=== PATIENT | female | born 1985 | race Caucasian/White ===

== ENCOUNTER 2019-10-06 20:49 | Inpatient (IN) | payer MEDICAID ==
[2019-10-06] MEDS ORDERED: TYLENOL 325 MG PO ONE (21:14)
[2019-10-06] MEDS ORDERED: Zofran 4 MG/2 ML VIAL IV ONE (21:14)
[2019-10-06] MEDS ORDERED: Sodium Chloride 0.9% 1000 ML 1,000 ML IV STA (21:14)
[2019-10-06] MEDS ORDERED: CLINDAMYCIN-D5W 600 MG/50 ML*** 600 MG/50 ML BAG IV STA (21:20)
[2019-10-06] MEDS ORDERED: CLINDAMYCIN-D5W 600 MG/50 ML*** 600 MG/50 ML BAG IV ONE (21:44)
[2019-10-06] MEDS ORDERED: Zofran 4 MG/2 ML VIAL ONE (21:44)
[2019-10-06] MEDS ORDERED: TYLENOL 325 MG ONE (21:44)
[2019-10-06] MEDS ORDERED: Sodium Chloride 0.9% 1000 ML 1,000 ML ONE (21:44)
--- NOTE | 2019-10-06 21:52 | ERPHSYRPT ---
- History of Present Illness Time Seen by Provider: 10/06/19 20:54 Source: patient Exam Limitations: no limitations Patient Subjective Stated Complaint: pt c/o infection to rt armpit, x3 weeks. Pt was hospitalized x2 in [place] and [place] for IV atb. Pt c/o lots of pain. Triage Nursing Assessment: pt has open areas to armpits (2 to rt and 1 to left) . Pt states, "they are abscesses that are open, the said there was something wrong with her sweat glands". Both armpits are red, open areas noted , pt c/o alot of pain. Physician History: Patient is here for bilateral axilla infection. She has a long h/o this. She states she has had 2 hospitalizations the past 3 weeks. She does have surgery scheduled for drainage in 2 weeks. Location: bilateral axilla Quality: draining abscess Radiation: none Severity: moderate Duration: chronic Timing: gradual Modifying factors/associated signs and symptoms: bactrim, clinda cream Allergies/Adverse Reactions: codeine Allergy (Verified 10/06/19 21:15) Tightness of Throat cephalexin [From Keflex] Adverse Reaction (Verified 10/06/19 21:15) Hives Home Medications: Clindamycin Phosphate [Cleocin T] 30 ml TP BID 10/06/19 [History] Sulfamethoxazole/Trimethoprim [Sulfamethoxazole-Tmp Ds Tablet] 1 each PO BID 06/17 [History] Hx Tetanus, Diphtheria Vaccination/Date Given: Yes Hx Influenza Vaccination/Date Given: Yes Hx Pneumococcal Vaccination/Date Given: No Immunizations Up to Date: Yes - Review of Systems Constitutional: Fever, Chills Eyes: No Symptoms Ears, Nose, & Throat: No Symptoms Respiratory: No Cough, No Dyspnea Cardiac: No Chest Pain, No Edema, No Syncope Abdominal/Gastrointestinal: No Abdominal Pain, No Nausea, No Vomiting, No Diarrhea Genitourinary Symptoms: No Dysuria Musculoskeletal: Other (bilateral axilla infection ), No Back Pain, No Neck Pain Skin: No Rash Neurological: No Dizziness, No Focal Weakness, No Sensory Changes Psychological: No Symptoms Endocrine: No Symptoms All Other Systems: Reviewed and Negative - Past Medical History Pertinent Past Medical History: Yes Neurological History: No Pertinent History ENT History: No Pertinent History Cardiac History: Hypertension, Myocardial Infarction (NH) Respiratory History: Asthma Endocrine Medical History: No Pertinent History Musculoskeletal History: No Pertinent History GI Medical History: No Pertinent History History: No Pertinent History Psycho-Social History: Anxiety, Bipolar, Depression, Panic Disorder, Other Female Reproductive Disorders: No Pertinent History, Menstrual Problems Other Medical History: PTSD, schizophrenia - Past Surgical History Past Surgical History: Yes Neuro Surgical History: No Pertinent History Cardiac: No Pertinent History Respiratory: No Pertinent History Female Surgical History: Other Other Surgical History: metal removed from rt knee and back. surgery to rt hand from cat bite fever. ablation - Social History Smoking Status: Never smoker Exposure to second hand smoke: Yes Drug Use: none Patient Lives Alone: No - Female History Hx Last Menstrual Period: 2008 Hx Now: No - Nursing Vital Signs Nursing Vital Signs: Initial Vital Signs Temperature 99.0 F 10/06/19 20:57 Pulse Rate 113 H 10/06/19 20:57 Respiratory Rate 22 10/06/19 20:57 Blood Pressure 182/140 10/06/19 20:57 O2 Sat by Pulse Oximetry 97 10/06/19 20:57 Pain Scale Pain Intensity [Left Arm] 9 Pain Intensity [Right Arm] 9 Pain Intensity 9 - Physical Exam General Appearance: alert Eyes, Ears, Nose, Throat Exam: moist mucous membranes Neck Exam: non-tender, supple Cardiovascular/Respiratory Exam: chest non-tender, normal breath sounds, regular rate/rhythm, no respiratory distress Abdominal Exam: non-tender, No guarding Back Exam: normal inspection, No vertebral tenderness Shoulder Exam: normal inspection (bilateral draining axilla abscesses ) Neuro/Tendon Exam: normal sensation, normal motor functions Mental Status Exam: alert, oriented x 3, cooperative Skin Exam: normal color, warm, dry SpO2: 97 Ordered Tests: Active Orders 24 hr Category Date Time Status IV Insertion STAT Care 10/06/19 21:14 Active BLOOD CULTURE Stat Lab 10/06/19 21:58 Received CBC W DIFF Stat Lab 10/06/19 21:58 Completed CMP Stat Lab 10/06/19 21:58 Completed HCG QUALITATIVE,SERUM Stat Lab 10/06/19 21:58 Completed LIPASE Stat Lab 10/06/19 21:58 Completed Lactic Acid Stat Lab 10/06/19 22:15 Results Medication Summary Generic Name Dose Route Start Last Admin Trade Name Freq PRN Reason Stop Dose Admin Vancomycin HCl 1 gm in 250 mls @ 167 mls/hr 10/06/19 21:30 Vancomycin 1gm/ Ns 250ml IV 10/06/19 23:29 Q1H SOULEYMANE Discontinued Medications Generic Name Dose Route Start Last Admin Trade Name Brandy PRN Reason Stop Dose Admin Acetaminophen 975 mg 10/06/19 21:14 10/06/19 22:06 Tylenol 325 Mg PO 10/06/19 21:15 975 mg STAT ONE Administration Acetaminophen Confirm 10/06/19 21:44 Tylenol 325 Mg Administered 10/06/19 21:45 Dose 975 mg .ROUTE .STK-MED ONE Sodium Chloride 1,000 mls @ 999 mls/hr 10/06/19 21:14 10/06/19 22:00 Sodium Chloride 0.9% 1000 Ml IV 10/06/19 22:14 999 mls/hr .Q1H1M STA Administration Clindamycin HCl/Dextrose 600 mg in 50 mls @ 100 mls/hr 10/06/19 21:20 22:04 Clindamycin-D5w 600 Mg/50 Ml IV 10/06/19 21:49 100 ml/hr STAT STA 100 mls/hr Administration Sodium Chloride Confirm 10/06/19 21:44 Sodium Chloride 0.9% 1000 Ml Administered 10/06/19 21:45 Dose 1,000 mls @ ud .ROUTE .STK-MED ONE Clindamycin HCl/Dextrose Confirm 10/06/19 21:44 Clindamycin-D5w 600 Mg/50 Ml Administered 10/06/19 21:45 Dose 600 mg in 50 mls @ ud IV .STK-MED ONE Ondansetron HCl 4 mg 10/06/19 21:14 10/06/19 22:02 Zofran 4 Mg/2 Ml Vial IV 10/06/19 21:15 4 mg STAT ONE Administration Ondansetron HCl Confirm 10/06/19 21:44 Zofran 4 Mg/2 Ml Vial Administered 10/06/19 21:45 Dose 4 mg .ROUTE .STK-MED ONE Lab/Rad Data: Laboratory Result Diagrams 10/06/19 21:58 10/06/19 21:58 Laboratory Results 10/06/19 10/06/19 10/06/19 Range/Units 22:15 21:58 21:58 WBC (4.0-10.5) K/mm3 RBC (4.1-5.4) M/mm3 Hgb (12.0-16.0) gm/dl Hct (35-47) % MCV (78-100) fl MCH (26-32) pg MCHC (32-36) g/dl RDW (11.5-14.0) % Plt Count (150-450) K/mm3 MPV (7.5-11.0) fl Gran % (36.0-66.0) % Eos # (Auto) (0-0.5) Absolute Lymphs (auto) (1.0-4.6) Absolute Monos (auto) (0.0-1.3) Lymphocytes % (24.0-44.0) % Monocytes % (0.0-12.0) % Eosinophils % (0.00-5.0) % Basophils % (0.0-0.4) % Absolute Granulocytes (1.4-6.9) Basophils # (0-0.4) Sodium 141 (137-145) mmol/L Potassium 4.1 (3.5-5.1) mmol/L Chloride 103 (98-107) mmol/L Carbon Dioxide 29 (22-30) mmol/L Anion Gap 12.7 (5-15) MEQ/L BUN 16 (7-17) mg/dL Creatinine 0.82 (0.52-1.04) mg/dL Estimated GFR > 60.0 ML/MIN Glucose 118 H (74-106) mg/dL Lactic Acid 2.4 H (0.4-2.0) Calcium 9.3 (8.4-10.2) mg/dL Total Bilirubin 0.50 (0.2-1.3) mg/dL AST 26 (14-36) U/L ALT 27 (0-35) U/L Alkaline Phosphatase 61 (38-126) U/L Serum Total Protein 8.7 H (6.3-8.2) g/dL Albumin 4.6 (3.5-5.0) g/dL Lipase 306 H (23-300) U/L Serum , Qual NEGATIVE (Negative) 10/06/19 Range/Units 21:58 WBC 9.7 (4.0-10.5) K/mm3 RBC 3.60 L (4.1-5.4) M/mm3 Hgb 11.9 L (12.0-16.0) gm/dl Hct 36.9 (35-47) % MCV 102.5 H (78-100) fl MCH 33.1 H (26-32) pg MCHC 32.2 (32-36) g/dl RDW 14.1 H (11.5-14.0) % Plt Count 249 (150-450) K/mm3 MPV 10.9 (7.5-11.0) fl Gran % 60.3 (36.0-66.0) % Eos # (Auto) 0.34 (0-0.5) Absolute Lymphs (auto) 2.59 (1.0-4.6) Absolute Monos (auto) 0.84 (0.0-1.3) Lymphocytes % 26.8 (24.0-44.0) % Monocytes % 8.7 (0.0-12.0) % Eosinophils % 3.5 (0.00-5.0) % Basophils % 0.7 (0.0-0.4) % Absolute Granulocytes 5.83 (1.4-6.9) Basophils # 0.07 (0-0.4) Sodium (137-145) mmol/L Potassium (3.5-5.1) mmol/L Chloride (98-107) mmol/L Carbon Dioxide (22-30) mmol/L Anion Gap (5-15) MEQ/L BUN (7-17) mg/dL Creatinine (0.52-1.04) mg/dL Estimated GFR ML/MIN Glucose (74-106) mg/dL Lactic Acid (0.4-2.0) Calcium (8.4-10.2) mg/dL Total Bilirubin (0.2-1.3) mg/dL AST (14-36) U/L ALT (0-35) U/L Alkaline Phosphatase (38-126) U/L Serum Total Protein (6.3-8.2) g/dL Albumin (3.5-5.0) g/dL Lipase (23-300) U/L Serum , Qual (Negative) - Progress Progress Note: 10/06/19 21:51 Ddx includes infection, sepsis, cellulites -sepsis pathway with fluids clindamycin, and vancomycin 10/06/19 22:33 Patient has continued vomiting, not taking PO. Lactic is slightly elevated at 2.4. I do believe patient will need to be admitted to the hospital. I did discuss over the phone with Dr. Maldonado. He will accept the patient. Discussed with : Caty Will see patient in: hospital (observation) Counseled pt/family regarding: lab results, diagnosis, need for follow-up - Departure Departure Disposition: Observation Clinical Impression: Axillary hidradenitis suppurativa Condition: Stable Critical Care Time: No Referrals: CHUY CISNEROS [Primary Care Provider] -
[2019-10-06 22:02] LABS: Absolute Neutrophil Ct (ANC) 5.83 (1.4-6.9); BASOPHIL % 0.7 % (0.0-0.4); Basophil (Absolute #) 0.07 (0-0.4); Eosinophil % 3.5 % (0.00-5.0); Eosinophil (Absolute #) 0.34 (0-0.5); Hematocrit 36.9 % (35-47); Hemoglobin 11.9 gm/dl (12.0-16.0); Lymphocyte (Absolute #) 2.59 (1.0-4.6); Lymphocytes % 26.8 % (24.0-44.0); Mean Cell Volume 102.5 fl (78-100); Mean Corpuscular Hemoglobin 33.1 pg (26-32); Mean Corpuscular Hgb Concent. 32.2 g/dl (32-36); Mean Platelet Volume 10.9 fl (7.5-11.0); Monocyte (Absolute #) 0.84 (0.0-1.3); Monocytes % 8.7 % (0.0-12.0); Neutrophil % 60.3 % (36.0-66.0); Platelet Count 249 K/mm3 (150-450); Red Cell Distribution Width 14.1 % (11.5-14.0); White Blood Count 9.7 K/mm3 (4.0-10.5)
[2019-10-06 22:14] LABS: ALBUMIN 4.6 g/dL (3.5-5.0); ALKALINE PHOSPHATASE 61 U/L (38-126); ANION GAP 12.7 MEQ/L (5-15); BLOOD UREA NITROGEN 16 mg/dL (7-17); CHLORIDE 103 mmol/L (98-107); Calcium 9.3 mg/dL (8.4-10.2); Carbon Dioxide 29 mmol/L (22-30); Creatinine 1 0.82 mg/dL (0.52-1.04); Glucose 118 mg/dL (74-106); LIPASE 306 U/L (23-300); Potassium 4.1 mmol/L (3.5-5.1); SGOT/AST 26 U/L (14-36); SGPT/ALT 27 U/L (0-35); SODIUM 141 mmol/L (137-145); Total Protein 8.7 g/dL (6.3-8.2)
[2019-10-06 22:20] LABS: Lactic Acid 2.4 (0.4-2.0)
[2019-10-06] MEDS: Vancomycin 1GM/ Ns 250ML*** 1 GM/250 ML IVPB IV SCH ×2 (22:37→23:37)
[2019-10-06] MEDS ORDERED: Hydromorphone 1 mg/ml Ampule ONE (23:32)
[2019-10-06] MEDS ORDERED: Zofran 4 MG/2 ML VIAL IV PRN (23:36)
[2019-10-06] MEDS ORDERED: Phenergan 25 MG INJ IM PRN (23:36)
[2019-10-06] MEDS ORDERED: TYLENOL 325 MG PO PRN (23:36)
[2019-10-06] MEDS ORDERED: Sodium Chloride 0.9% 1000 ML 1,000 ML IV SCH (23:36)
[2019-10-06] MEDS: DILAUDID 2 MG INJECTION IV PRN (23:38)
[2019-10-07] MEDS: TORAdol 30 mg Injection IV PRN ×2 (01:24→07:51)
[2019-10-07] MEDS: DILAUDID 2 MG INJECTION IV PRN (04:19)
[2019-10-07 04:52] LABS: Absolute Neutrophil Ct (ANC) 5.01 (1.4-6.9); BASOPHIL % 0.7 % (0.0-0.4); Basophil (Absolute #) 0.06 (0-0.4); Eosinophil % 3.8 % (0.00-5.0); Eosinophil (Absolute #) 0.35 (0-0.5); Hematocrit 34.2 % (35-47); Hemoglobin 10.9 gm/dl (12.0-16.0); Lymphocyte (Absolute #) 2.81 (1.0-4.6); Lymphocytes % 30.6 % (24.0-44.0); Mean Corpuscular Hemoglobin 33.1 pg (26-32); Mean Corpuscular Hgb Concent. 31.9 g/dl (32-36); Mean Platelet Volume 10.4 fl (7.5-11.0); Monocyte (Absolute #) 0.95 (0.0-1.3); Monocytes % 10.3 % (0.0-12.0); Neutrophil % 54.6 % (36.0-66.0); Platelet Count 224 K/mm3 (150-450); Red Blood Count 3.29 M/mm3 (4.1-5.4); Red Cell Distribution Width 14.1 % (11.5-14.0); White Blood Count 9.2 K/mm3 (4.0-10.5)
[2019-10-07 04:55] LABS: Lactic Acid 1.9 (0.4-2.0)
[2019-10-07 05:05] LABS: ALBUMIN 4.1 g/dL (3.5-5.0); ALKALINE PHOSPHATASE 62 U/L (38-126); ANION GAP 13.3 MEQ/L (5-15); BLOOD UREA NITROGEN 15 mg/dL (7-17); CHLORIDE 103 mmol/L (98-107); Calcium 8.5 mg/dL (8.4-10.2); Carbon Dioxide 27 mmol/L (22-30); Creatinine 1 0.78 mg/dL (0.52-1.04); Glucose 133 mg/dL (74-106); Potassium 3.4 mmol/L (3.5-5.1); SGOT/AST 27 U/L (14-36); SGPT/ALT 25 U/L (0-35); SODIUM 140 mmol/L (137-145); Total Protein 7.7 g/dL (6.3-8.2)
[2019-10-07] MEDS ORDERED: PHARMACY DOSING REQUIRED: VANCOMYCIN MC ONE (06:45)
[2019-10-07] MEDS ORDERED: PHARMACY DOSING REQUEST MC ONE (08:08)
[2019-10-07] MEDS ORDERED: MEDICATION INTERVENTION PO SCH ×2 (08:45→09:00)
--- NOTE | 2019-10-07 09:10 | HP ---
CHIEF COMPLAINT: Suppurativa hidradenitis with exacerbation and severe pain. HISTORY OF PRESENT ILLNESS: The patient is a 34 year-old white female who has been fighting suppurativa hidradenitis with oral Bactrim and Clindamycin over the past several days that had initially gotten better but became worse again. She reports there has been drainage in both arm pits, had gotten hot and red and increasingly painful therefore she presented herself to the emergency room for further evaluation and management and subsequently admitted to the hospital for IV antibiotics. PAST MEDICAL HISTORY: Significant for morbid obesity. She has history of hypertension. By her history a previous myocardial infarction. She has anxiety, bipolar depression, panic disorder, schizophrenia, post-traumatic stress disorder, history of narcotic abuse. PHYSICAL EXAMINATION: The patient's vital signs on admission showed temperature 99.0F, pulse 113, blood pressure 182/140 and respiratory rate 20. O2 saturation 97%. Apparently the patient had received some Fentanyl and became hypoxic afterwards. She was placed on oxygen and telemetry after this from her stay in the emergency room. Physical examination reveals otherwise an obese female currently in no obvious distress. HEENT: Normocephalic, atraumatic. Pupils equal round reactive to light. Extraocular movements intact. Oropharynx is pink and moist. NECK: Supple. No lymphadenopathy, thyromegaly or JVD. CHEST: The axillary areas bilaterally revealed drainage of pus. There is appearance of what appeared to be old drainage sites that are pink at this time, minimal redness, obvious drainage apparent from what appear to be bilateral carbuncles. The chest is essentially clear. HEART: Regular rate and rhythm. ABDOMEN: Soft without palpable or masses. EXTREMITIES: Without cyanosis, clubbing or edema. NEUROLOGIC: The patient is alert and oriented x3 and is concerned about receiving pain medication. LAB DATA AND TESTS: The patient's white count was 9,700, hemoglobin 11.9, PLT count 249,000. Metabolic panel: Glucose 118, BUN 16, creatinine 0.82. Electrolytes were normal. Liver enzymes were normal. HCG negative. Lactic acid 2.4. ASSESSMENT: A patient with bilateral suppurativa hidradenitis. She has been admitted for IV Vancomycin, IV Cleocin. These appear to be minimally red and warm at this point in time. I am somewhat concerned with the patient's history of psychological problems and known history of admitted narcotic dependence and her current request for pain medications. She has received outpatient morphine fairly recently for this pain as well, reported taking Tylenol and ibuprofen on a regular basis as well. The patient will be monitored closely presently. We will try to get her off the oxygen as we are not going to continue to give her any morphine medication or Fentanyl. We will give her Percocet 5/325 every four hours PRN as well as ibuprofen 800 mg every 8 hours for pain control. We will ask for surgical consultation as she currently pending in a week from now in [place]. She had recently moved to our area from [place] to be with her best friend. She reports that she will not be able to make it back up to [place] for the planned surgery.
[2019-10-07] MEDS: Zestril 20 MG PO SCH ×2 (09:14→21:30)
[2019-10-07] MEDS: Inderal 20 MG PO SCH ×2 (09:14→21:31)
[2019-10-07] MEDS: Catapres 0.1 MG PO SCH ×3 (09:14→21:31)
[2019-10-07] MEDS: Seroquel 100 MG PO SCH ×3 (09:14→21:31)
[2019-10-07] MEDS: Prozac 20 MG PO SCH (09:15)
[2019-10-07] MEDS: PERCOCET TABLET 5/325MG PO PRN ×2 (09:15→20:39)
[2019-10-07] MEDS: hydroDIURIL 25 MG PO SCH ×2 (09:15→21:30)
[2019-10-07] MEDS ORDERED: LAMOTRIGINE PO SCH (10:00)
[2019-10-07] MEDS ORDERED: PROPRANOLOL HCL 60 MG PO SCH (10:00)
[2019-10-07] MEDS ORDERED: LITHIUM CARBONATE 600 MG PO SCH (10:00)
[2019-10-07] MEDS ORDERED: [UNRECOGNIZED DRUG - OTHER] PO SCH (10:00)
[2019-10-07] MEDS ORDERED: Lithium Carbonate 300 MG PO SCH (10:00)
[2019-10-07] MEDS ORDERED: LISINOPRIL PO SCH (10:00)
[2019-10-07] MEDS ORDERED: HYDROCHLOROTHIAZIDE PO SCH (10:00)
[2019-10-07] MEDS: MOTRIN 400 MG PO SCH ×3 (11:43→21:29)
[2019-10-07] MEDS: VANCOMYCIN 2 GRAM/400 ML BAG 2 GM/400 ML PIGGYBACK IV SCH ×2 (11:44→22:53)
[2019-10-07] MEDS: CLINDAMYCIN-D5W 600 MG/50 ML*** 600 MG/50 ML BAG IV SCH ×3 (11:44→21:32)
[2019-10-07] MEDS ORDERED: Lactated Ringers 1,000 ML IV ONE (15:34)
[2019-10-07] MEDS ORDERED: Sensorcaine 0.25% 10 ML ONE (16:39)
[2019-10-07] MEDS ORDERED: SUBLIMAZE 100 MCG/2 ML ONE ×2 (16:50→18:03)
[2019-10-07] MEDS ORDERED: DIPRIVAN 200 MG/20 ML IV ONE (16:50)
[2019-10-07] MEDS ORDERED: TORAdol 30 mg Injection ONE (17:04)
[2019-10-07] MEDS ORDERED: Decadron 4 MG INJ ONE (17:04)
[2019-10-07] MEDS ORDERED: Zofran 4 MG/2 ML VIAL ONE (17:04)
[2019-10-07] MEDS ORDERED: Ephedrine Sulfate 50 MG/ML ONE (17:06)
[2019-10-07] MEDS ORDERED: DILAUDID 2 MG INJECTION ONE (18:03)
[2019-10-08] MEDS: PERCOCET TABLET 5/325MG PO PRN ×4 (03:17→20:55)
[2019-10-08] MEDS: MOTRIN 400 MG PO SCH ×3 (06:02→21:29)
[2019-10-08] MEDS: CLINDAMYCIN-D5W 600 MG/50 ML*** 600 MG/50 ML BAG IV SCH ×3 (06:08→21:31)
[2019-10-08] MEDS ORDERED: TROUGH DRUG LEVELS IJ ONE (09:30)
[2019-10-08] MEDS: Prozac 20 MG PO SCH (10:00)
[2019-10-08] MEDS: Inderal 20 MG PO SCH ×2 (10:00→21:30)
[2019-10-08] MEDS: hydroDIURIL 25 MG PO SCH ×2 (10:00→21:30)
[2019-10-08] MEDS: Seroquel 100 MG PO SCH ×3 (10:00→21:29)
[2019-10-08] MEDS: Zestril 20 MG PO SCH ×2 (10:01→21:31)
[2019-10-08] MEDS: Catapres 0.1 MG PO SCH ×3 (10:01→21:30)
[2019-10-08] MEDS: VANCOMYCIN 2 GRAM/400 ML BAG 2 GM/400 ML PIGGYBACK IV SCH ×2 (11:16→22:35)
--- NOTE | 2019-10-08 14:13 | PCM.NOTE ---
Date and Time: 10/08/19 5438 Subjective Assessment: Patient reports continued pain in right arm pit area. She had incision and drainage yesterday with general surgeon. She reports pain medication helps for an hour or so. She states long standing hx of infections in arm pit area bilat. - Review of Systems Constitutional: No Symptoms Eyes: No Symptoms Ears, Nose, & Throat: No Symptoms Respiratory: No Symptoms Cardiac: No Symptoms Abdominal/Gastrointestinal: No Symptoms Genitourinary Symptoms: No Symptoms Musculoskeletal: Other (pain under arms bilat) Skin: Skin Lesions Objective Exam General Appearance: no apparent distress, obese Neurologic Exam: alert, cooperative, normal mood/affect Skin Exam: normal color, warm, dry, other (bandage over right axilla; left axilla with scars and few ertyematous papules but no drainage on left side.) Respiratory Exam: normal breath sounds, lungs clear, No crackles/rales, No rhonchi, No wheezing Cardiovascular Exam: regular rate/rhythm, normal heart sounds, No friction rub, No gallop, No tachycardia Extremity Exam: other (no c/c/e) OBJECTIVE DATA Vital Signs: Vital Signs - 24 hr Temp Pulse Resp BP Pulse Ox 10/08/19 12:50 97.8 F 76 20 102/55 97 10/08/19 08:09 98.1 F 59 L 22 133/91 92 L 10/08/19 08:01 92 L 10/08/19 04:09 97.9 F 85 24 136/75 94 L 10/08/19 01:26 97.9 F 65 19 120/60 97 10/08/19 00:00 97.9 F 81 20 131/74 94 L 10/07/19 23:28 94 L 10/07/19 20:00 98.1 F 71 18 116/59 10/07/19 19:30 97.4 F 66 20 105/68 93 L 10/07/19 19:15 97.9 F 68 19 127/65 96 10/07/19 19:00 98.3 F 70 18 122/55 98 10/07/19 15:56 98.1 F 70 17 105/56 96 10/07/19 15:26 98 F 68 17 108/57 97 Oxygen-Last 24 hours O2 Percentage 2 Liters = 28% O2 Percentage 2 Liters = 28% O2 Percentage 2 Liters = 28% Oxygen Flowrate (L/min)-RT 2 Pain Assessment - Last Documented Pain Intensity [Left Arm] 9 Pain Intensity [Right Arm] 9 Pain Intensity 6 Pain Scale Used 0-10 Pain Scale Intake and Output: Intake & Output 10/06/19 10/07/19 10/08/19 10/09/19 06:59 06:59 06:59 06:59 Intake Total 1033 3777 540 Output Total 600 Balance 1033 7087 540 Weight 162.8 kg 162.8 kg Lab Results: Accuchecks Date 10/08/19 Date 10/08/19 Date 10/08/19 Time 12:07 Time 06:20 Time 00:10 Accucheck Value: 166 Accucheck Value: 153 Accucheck Value: 183 Lab Results-Last 24 Hours 10/08/19 Range/Units 09:50 Vancomycin Trough 10.67 (10-20) ug/mL Multi-Disciplinary Progress Notes: Multi-Disciplinary Progress Notes 10/08/19 11:59 Pharmacy Note by Massimo Brand VANCOMYCIN TROUGH = 10.6 CONTINUE SAME DOSE: VANCOMYCIN 2 MG Q12H VIOLETTA Initialized on 10/08/19 11:59 - END OF NOTE Assessment/Plan (1) Axillary hidradenitis suppurativa Current Visit: Yes Status: Acute Assessment & Plan: s/p I and D on right side with wound culture in lab. Continue current antibiotics; continue with pain control. Code(s): L73.2 - HIDRADENITIS SUPPURATIVA (2) DVT prophylaxis Current Visit: Yes Status: Acute Assessment & Plan: SCD and zac hose. Code(s): Z29.9 - ENCOUNTER FOR PROPHYLACTIC MEASURES, UNSPECIFIED (3) Cellulitis Current Visit: Yes Status: Acute Qualifiers: Site of cellulitis: extremity Site of cellulitis of extremity: axilla Laterality: right Qualified Code(s): L03.111 - Cellulitis of right axilla Assessment & Plan: s/p I and D Code(s): L03.90 - CELLULITIS, UNSPECIFIED
[2019-10-08] MEDS ORDERED: Sodium Chloride 0.9% 500 ML 500 ML IV ONE (15:27)
[2019-10-08 16:28] LABS: Hematocrit 31.8 % (35-47); Hemoglobin 10.2 gm/dl (12.0-16.0); Mean Cell Volume 104.3 fl (78-100); Mean Corpuscular Hemoglobin 33.4 pg (26-32); Mean Corpuscular Hgb Concent. 32.1 g/dl (32-36); Mean Platelet Volume 11.2 fl (7.5-11.0); Platelet Count 201 K/mm3 (150-450); Red Blood Count 3.05 M/mm3 (4.1-5.4); Red Cell Distribution Width 13.6 % (11.5-14.0); White Blood Count 8.1 K/mm3 (4.0-10.5)
[2019-10-08 16:35] LABS: ANION GAP 10.9 MEQ/L (5-15); BLOOD UREA NITROGEN 15 mg/dL (7-17); CHLORIDE 105 mmol/L (98-107); Calcium 8.5 mg/dL (8.4-10.2); Carbon Dioxide 25 mmol/L (22-30); Creatinine 1 0.69 mg/dL (0.52-1.04); Glucose 178 mg/dL (74-106); Potassium 3.6 mmol/L (3.5-5.1); SODIUM 138 mmol/L (137-145)
[2019-10-09] MEDS: PERCOCET TABLET 5/325MG PO PRN ×5 (00:58→22:14)
[2019-10-09 06:42] LABS: Absolute Neutrophil Ct (ANC) 3.37 (1.4-6.9); BASOPHIL % 0.6 % (0.0-0.4); Basophil (Absolute #) 0.04 (0-0.4); Eosinophil % 2.5 % (0.00-5.0); Eosinophil (Absolute #) 0.17 (0-0.5); Hematocrit 31.6 % (35-47); Hemoglobin 10.1 gm/dl (12.0-16.0); Lymphocyte (Absolute #) 2.68 (1.0-4.6); Lymphocytes % 39.4 % (24.0-44.0); Mean Cell Volume 105.3 fl (78-100); Mean Corpuscular Hemoglobin 33.7 pg (26-32); Monocyte (Absolute #) 0.55 (0.0-1.3); Monocytes % 8.1 % (0.0-12.0); Neutrophil % 49.4 % (36.0-66.0); Platelet Count 197 K/mm3 (150-450); Red Cell Distribution Width 13.9 % (11.5-14.0); White Blood Count 6.8 K/mm3 (4.0-10.5)
[2019-10-09 07:07] LABS: ANION GAP 11.8 MEQ/L (5-15); BLOOD UREA NITROGEN 12 mg/dL (7-17); CHLORIDE 107 mmol/L (98-107); Calcium 8.3 mg/dL (8.4-10.2); Carbon Dioxide 24 mmol/L (22-30); Creatinine 1 0.68 mg/dL (0.52-1.04); Glucose 123 mg/dL (74-106); Potassium 3.9 mmol/L (3.5-5.1); SODIUM 139 mmol/L (137-145)
[2019-10-09] MEDS: CLINDAMYCIN-D5W 600 MG/50 ML*** 600 MG/50 ML BAG IV SCH ×3 (08:52→22:04)
[2019-10-09] MEDS: Seroquel 100 MG PO SCH ×3 (09:10→22:09)
[2019-10-09] MEDS: Inderal 20 MG PO SCH ×2 (09:10→22:10)
[2019-10-09] MEDS: hydroDIURIL 25 MG PO SCH ×2 (09:10→22:10)
[2019-10-09] MEDS: Prozac 20 MG PO SCH (09:10)
[2019-10-09] MEDS: Zestril 20 MG PO SCH ×2 (09:11→22:11)
[2019-10-09] MEDS: Catapres 0.1 MG PO SCH ×3 (09:11→22:09)
[2019-10-09] MEDS: VANCOMYCIN 2 GRAM/400 ML BAG 2 GM/400 ML PIGGYBACK IV SCH ×2 (11:33→22:48)
--- NOTE | 2019-10-09 14:19 | PCM.NOTE ---
Date and Time: 10/09/19 1414 Subjective Assessment: Patient reports pain is not controlled with percocet and it only helps for about 30 minutes. She is day 2 s/p surgery on her right arm pit. She had trouble urinating yesterday so labs were checked and 500 mL Normal saline bolus given. Patient reports she is urinating well now. - Review of Systems Constitutional: No Symptoms Respiratory: No Symptoms Cardiac: No Symptoms Abdominal/Gastrointestinal: No Symptoms Genitourinary Symptoms: No Symptoms, Other (pain in right arm pit area) Skin: Other (bumps in left arm pit area) Objective Exam General Appearance: no apparent distress, obese Neurologic Exam: alert, cooperative Skin Exam: normal color, warm, other (large bandage with serosangenous drainage on it on right arm pit) Respiratory Exam: normal breath sounds, No crackles/rales, No rhonchi, No wheezing Cardiovascular Exam: regular rate/rhythm, normal heart sounds, No murmur, No friction rub, No gallop Gastrointestinal/Abdomen Exam: soft, normal bowel sounds, No tenderness OBJECTIVE DATA Vital Signs: Vital Signs - 24 hr Temp Pulse Resp BP Pulse Ox 10/09/19 12:30 98.8 F 90 20 158/70 96 10/09/19 07:28 98.5 F 78 20 154/99 97 10/09/19 04:00 98.9 F 75 21 122/58 97 10/09/19 00:00 98.1 F 67 19 141/77 94 L 10/08/19 20:00 97.9 F 72 20 127/95 98 10/08/19 19:58 95 10/08/19 17:21 98 F 72 20 119/60 95 Pain Assessment - Last Documented Pain Intensity [Left Arm] 9 Pain Intensity [Right Arm] 9 Pain Intensity 9 Pain Scale Used 0-10 Pain Scale Intake and Output: Intake & Output 10/07/19 10/08/19 10/09/19 10/10/19 06:59 06:59 06:59 06:59 Intake Total 1033 3777 3890 500 Output Total 600 1500 150 Balance 1033 1177 2390 350 Weight 162.8 kg 162.8 kg Lab Results: Accuchecks Date 10/09/19 Date 10/08/19 Time 00:00 Accucheck Value: 297 Accucheck Value: 199 Lab Results-Last 24 Hours 10/08/19 10/08/19 10/08/19 Range/Units 15:30 16:10 16:10 WBC 8.1 (4.0-10.5) K/mm3 RBC 3.05 L (4.1-5.4) M/mm3 Hgb 10.2 L (12.0-16.0) gm/dl Hct 31.8 L (35-47) % MCV 104.3 H (78-100) fl MCH 33.4 H (26-32) pg MCHC 32.1 (32-36) g/dl RDW 13.6 (11.5-14.0) % Plt Count 201 (150-450) K/mm3 MPV 11.2 H (7.5-11.0) fl Gran % (36.0-66.0) % Eos # (Auto) (0-0.5) Absolute Lymphs (auto) (1.0-4.6) Absolute Monos (auto) (0.0-1.3) Lymphocytes % (24.0-44.0) % Monocytes % (0.0-12.0) % Eosinophils % (0.00-5.0) % Basophils % (0.0-0.4) % Absolute Granulocytes (1.4-6.9) Basophils # (0-0.4) Sodium 138 (137-145) mmol/L Potassium 3.6 (3.5-5.1) mmol/L Chloride 105 (98-107) mmol/L Carbon Dioxide 25 (22-30) mmol/L Anion Gap 10.9 (5-15) MEQ/L BUN 15 (7-17) mg/dL Creatinine 0.69 (0.52-1.04) mg/dL Estimated GFR > 60.0 ML/MIN Glucose 178 H (74-106) mg/dL Hemoglobin A1c 5.64 (4.5-6.0) % Calcium 8.5 (8.4-10.2) mg/dL 10/09/19 10/09/19 Range/Units 06:35 06:35 WBC 6.8 (4.0-10.5) K/mm3 RBC 3.00 L (4.1-5.4) M/mm3 Hgb 10.1 L (12.0-16.0) gm/dl Hct 31.6 L (35-47) % MCV 105.3 H (78-100) fl MCH 33.7 H (26-32) pg MCHC 32.0 (32-36) g/dl RDW 13.9 (11.5-14.0) % Plt Count 197 (150-450) K/mm3 MPV 11.0 (7.5-11.0) fl Gran % 49.4 (36.0-66.0) % Eos # (Auto) 0.17 (0-0.5) Absolute Lymphs (auto) 2.68 (1.0-4.6) Absolute Monos (auto) 0.55 (0.0-1.3) Lymphocytes % 39.4 (24.0-44.0) % Monocytes % 8.1 (0.0-12.0) % Eosinophils % 2.5 (0.00-5.0) % Basophils % 0.6 (0.0-0.4) % Absolute Granulocytes 3.37 (1.4-6.9) Basophils # 0.04 (0-0.4) Sodium 139 (137-145) mmol/L Potassium 3.9 (3.5-5.1) mmol/L Chloride 107 (98-107) mmol/L Carbon Dioxide 24 (22-30) mmol/L Anion Gap 11.8 (5-15) MEQ/L BUN 12 (7-17) mg/dL Creatinine 0.68 (0.52-1.04) mg/dL Estimated GFR > 60.0 ML/MIN Glucose 123 H (74-106) mg/dL Hemoglobin A1c (4.5-6.0) % Calcium 8.3 L (8.4-10.2) mg/dL Assessment/Plan (1) Axillary hidradenitis suppurativa Current Visit: Yes Status: Acute Assessment & Plan: Continue IV antibiotics, s/p incision and drainage of infected area on right side with packing now and dressing changes required. Needing frequent pain medication for pain control. Will need discharge planning to arrange outpatient wound care once general surgeon knows what they want to have done and how frequently. Awaiting wound culture results to know if antibiotic coverage can be narrowed. Code(s): L73.2 - HIDRADENITIS SUPPURATIVA (2) DVT prophylaxis Current Visit: Yes Status: Acute Code(s): Z29.9 - ENCOUNTER FOR PROPHYLACTIC MEASURES, UNSPECIFIED (3) Cellulitis Current Visit: Yes Status: Acute Qualifiers: Site of cellulitis: extremity Site of cellulitis of extremity: axilla Laterality: right Qualified Code(s): L03.111 - Cellulitis of right axilla Code(s): L03.90 - CELLULITIS, UNSPECIFIED
[2019-10-09] MEDS: MOTRIN 400 MG PO SCH ×3 (14:59→22:08)
[2019-10-10] MEDS: MOTRIN 400 MG PO SCH ×3 (06:17→22:22)
[2019-10-10] MEDS: CLINDAMYCIN-D5W 600 MG/50 ML*** 600 MG/50 ML BAG IV SCH ×3 (06:18→20:51)
--- NOTE | 2019-10-10 08:27 | CONS ---
CONSULT DATE: 10/07/2019 REASON FOR CONSULT: Hidradenitis. HISTORY: This patient presents with several weeks of acute suppurative axillary hidradenitis. This acute episode is primarily on the right side. She does have bilateral chronic hidradenitis but the right side is what is bothering her currently. She was admitted a few weeks ago and seen by a surgeon and she had plans for outpatient surgery but she moved and is no longer following with that surgeon. She was having severe pain and came to the emergency room for the pain in her right axilla and would like surgical intervention for this problem. PAST MEDICAL HISTORY: Hypertension. Morbid obesity. Bipolar. Anxiety. Schizophrenia. Post-traumatic stress disorder. MEDICATIONS: Medications reviewed, see MAR. ALLERGIES: ALLERGIES REVIEWED, SEE MAR. SOCIAL HISTORY: Positive for tobacco. FAMILY HISTORY: Noncontributory. PHYSICAL EXAMINATION: GENERAL: No acute distress. HEENT: Sclera nonicteric. Extraocular movements intact. NECK: Supple. No JVD. CHEST: Nonlabored breathing. Bilateral axillary with hidradenitis. The left has a couple of chronic draining sinus tracts we felt are basically completely nontender but still had some drainage. The right side is exquisitely tender. There appears to be a 2 x2 cm very tender nodule and there are two open draining sinus tracts superior and inferior to the central area. ABDOMEN: Obese, soft, nontender. NEURO: Awake, alert, oriented. PSYCH: Appropriate mood and affect. ASSESSMENT AND PLAN: 1) Bilateral axillary hidradenitis. Options discussed with the patient including recommendation for dermatology referral for long-term medical management options for hidradenitis. The right axilla is bothering her a lot and has failed to resolve with p.o. and IV antibiotics and she would like surgical intervention on her right axilla. 2) Right axillary hidradenitis suppurativa with failure of outpatient management. Plan for incision and debridement of right axillary hidradenitis.
--- NOTE | 2019-10-10 08:49 | OP ---
SURGERY DATE/TIME: 10/07/2019 1651 PREOPERATIVE DIAGNOSIS: Right axillary hidradenitis with failure of medical management. POSTOPERATIVE DIAGNOSES: Right axillary hidradenitis with failure of medical management. PROCEDURES: Incision and debridement right axillary hidradenitis suppurativa 10 x 3 cm. SURGEON: Elliott Jacobs M.D. ANESTHESIA: General. ESTIMATED BLOOD LOSS: Less than 20 cc. COMPLICATIONS: None. SPECIMEN: Right axillary hidradenitis for culture and for permanent. FINDINGS: Right axillary with two areas of hidradenitis with chronic drainage tracts and sinus tracts in the skin measuring in total 10 x 3 cm. PATIENT PRESENTATION: This patient presents with right axillary hidradenitis that has failed medical management. After discussing risks, benefits of surgical debridement and plans for packing the wounds for secondary closure, the patient wishes to proceed with surgery. DESCRIPTION OF PROCEDURE: The patient was brought to the operating room and placed supine on the operating table, placed under general anesthesia. The right axilla was prepped and draped in sterile fashion. There were two drain tracts one at the top of the axilla and one at the inferior aspect of the axilla and there is a 2 x 2 cm firm nodule about the middle maybe slightly towards the inferior aspect. First, the superior tract was probed with a clamp and opened over top of it. This went down about 3 cm and from the inferior tract this was opened up and this opened into the 2 x 2 cm indurated area and this lower portion opened about 6 cm. Both of these were about 3 cm wide and the top one was probably about 4 cm actually. After these were unroofed there was chronic granulation tissue in the bed and indurated poor quality tissue and this was all excised with electrocautery down to healthy fat underneath the granulation tissue. The total wounds added together about 10 x 3 cm. They did not connect. There was about a 1 cm bridge of healthy appearing skin in between them. There did not appear to be a tract between the two areas. Some of the tissue was sent for culture and some was sent for permanent. Hemostasis achieved with electrocautery. The wound was irrigated and suctioned dry. There was some minor oozing from the skin edges and cautery did not seem to be helping with this and two pieces of Surgicel were placed in the bed of the wound and this appeared to adequately achieve hemostasis. The wound was then packed with moist Kerlix and ABD and tape were applied. The patient was recovered and taken to PACU in stable condition.
[2019-10-10] MEDS: Prozac 20 MG PO SCH (08:58)
[2019-10-10] MEDS: PERCOCET TABLET 5/325MG PO PRN ×2 (08:58→18:58)
[2019-10-10] MEDS: Inderal 20 MG PO SCH ×2 (08:58→20:49)
[2019-10-10] MEDS: Zestril 20 MG PO SCH ×2 (08:59→20:51)
[2019-10-10] MEDS: Seroquel 100 MG PO SCH ×3 (08:59→20:50)
[2019-10-10] MEDS: hydroDIURIL 25 MG PO SCH ×2 (08:59→20:51)
[2019-10-10] MEDS: Catapres 0.1 MG PO SCH ×3 (08:59→20:50)
[2019-10-10] MEDS: VANCOMYCIN 2 GRAM/400 ML BAG 2 GM/400 ML PIGGYBACK IV SCH ×2 (09:00→22:23)
[2019-10-11] MEDS: PERCOCET TABLET 5/325MG PO PRN ×3 (03:40→17:35)
[2019-10-11] MEDS: MOTRIN 400 MG PO SCH ×3 (05:45→21:39)
[2019-10-11] MEDS: CLINDAMYCIN-D5W 600 MG/50 ML*** 600 MG/50 ML BAG IV SCH ×3 (05:45→21:45)
[2019-10-11] MEDS: Catapres 0.1 MG PO SCH ×3 (09:12→21:39)
[2019-10-11] MEDS: Prozac 20 MG PO SCH (09:12)
[2019-10-11] MEDS: hydroDIURIL 25 MG PO SCH ×2 (09:13→21:39)
[2019-10-11] MEDS: Zestril 20 MG PO SCH ×2 (09:13→21:39)
[2019-10-11] MEDS: Seroquel 100 MG PO SCH ×3 (09:13→21:38)
[2019-10-11] MEDS: Inderal 20 MG PO SCH ×2 (09:14→21:38)
[2019-10-11] MEDS: VANCOMYCIN 2 GRAM/400 ML BAG 2 GM/400 ML PIGGYBACK IV SCH (10:05)
[2019-10-11 10:38] LABS: INR 1.1 (0.8-3.0); PROTIME 12.4 SECONDS (9.95-12.35)
--- NOTE | 2019-10-11 11:33 | DS ---
DISCHARGE DIAGNOSES: 1) SUPPURATIVA HIDRADENITIS. 2) CELLULITIS. CONSULTANTS: Dr. Jacobs. PROCEDURE: Debridement of axillary wound. HOSPITAL COURSE: The patient is a 34 year-old white female who is morbidly obese and has had problems with suppurativa hidradenitis for quite some time. She apparently had been at another facility and placed on Bactrim, Clindamycin and discharged home. She immediately presented to our facility with some redness in the axillary region, complaining of increasing pain that was intolerable to her. She reported that she had been taking ibuprofen. She does have a history of narcotic dependency and addiction. The patient was given apparently a dose of Fentanyl in the emergency room and had hypoxic event. She was placed on telemetry. She recovered from the effects of the narcotics. She woke up and did well thereafter. The patient was seen by surgery on 10/07/2019 at which time she had debridement in the right axillary region. The patient has been on IV Vancomycin, IV Clindamycin, has improved and feeling much better. She was checked once again on 10/10/2019 by surgery and they signed off on her at this time. The plan was however for her to receive IV Vancomycin which she is currently receiving on every 12 hours basis for an additional week as an outpatient. We decided to place a PICC line for her as she is a hard stick and she will continue to receive the IV Vancomycin for a week and we will reassess her at that time in the office. She will also receive normal saline wet to dry dressing changes every 12 hours in the outpatient area as she receives the Vancomycin infusion. She will also be on Clindamycin every six hours p.o. as well. For pain medicine she will be on ibuprofen and Tylenol on a PRN basis. The patient was warned to watch for possible diarrhea as with all of these antibiotics there is a possibility of her developing Clostridium difficile colitis. ADDENDUM: The patient was due to be discharged on 10/11/2019 however developed ventricular tachycardia before her discharge with around a 12 beat run. 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 The patient had a cardiology consultation from tele-cardiology. It was noted that her magnesium was somewhat low at 1.4. We gave her magnesium and additional potassium and she had no further evidence of PVC's or runs of ventricular tachycardia. The tele-cardiology consult did not recommend any additional antiarrhythmic medications at this time. The patient has been free of any arrhythmia problems since that time. Original plans for the patient to be discharged on Vancomycin every 12 hours IV in the outpatient infusion center for her suppurativa hidradenitis which we will continue to do along with her oral Cleocin. The patient has instructions to follow up in my office in a week. At that time we will try to arrange to get her to see a item processor in our area as the patient reports she has now permanently moved to our area.
--- NOTE | 2019-10-11 13:22 | XRAY ---
Indication: Long-term IV access and therapy for right axillary infection. Informed consent obtained. Patient was placed on the fluoroscopic table in a supine position. Initial sonographic imaging of the right upper extremity was performed for localization of patent veins. The right upper extremity was then prepped and draped in sterile fashion. Tourniquet applied. 1% lidocaine plain used for local anesthesia. Using ultrasound guidance and a micropuncture needle, a basilic vein above the elbow was successfully percutaneously cannulized. A floppy tip 0.018 guidewire inserted. Tourniquet released. Needle was exchanged for a 5 Nepalese dilator peel-away sheath catheter. Ultimately a 5 [place]alese double-lumen PICC line was inserted over a longer 0.018 guidewire with the tip positioned in the distal SVC using fluoroscopic guidance. Guidewire removed. Both ports flushed with heparinized saline. Catheter was secured. Postoperative instructions and orders given. Patient discharged in good condition. Impression: Technically successful right upper extremity PICC line placement using ultrasound and fluoroscopic guidance. No immediate complications. Approximately 1 cc blood loss. Approximately 0.5 minute of fluoroscopy used. Catheter length is 47 cm.
--- NOTE | 2019-10-11 13:25 | XRAY ---
Indication: Ultrasound guidance for PICC line placement. Initial sonographic imaging of the right upper extremity was performed for localization of patent veins. A patent basilic vein identified above the elbow. Ultrasound guidance was then used for PICC line insertion. Full PICC line insertion is reported separately.
[2019-10-11 15:11] LABS: ALKALINE PHOSPHATASE 54 U/L (38-126); ANION GAP 15.7 MEQ/L (5-15); BLOOD UREA NITROGEN 16 mg/dL (7-17); CHLORIDE 102 mmol/L (98-107); Calcium 9.1 mg/dL (8.4-10.2); Carbon Dioxide 24 mmol/L (22-30); Creatinine 1 0.95 mg/dL (0.52-1.04); Glucose 142 mg/dL (74-106); MAGNESIUM 1.4 mg/dL (1.6-2.3); Potassium 3.4 mmol/L (3.5-5.1); SGOT/AST 19 U/L (14-36); SGPT/ALT 20 U/L (0-35); SODIUM 138 mmol/L (137-145); Total Protein 7.6 g/dL (6.3-8.2)
[2019-10-11] MEDS ORDERED: PHARMACY DOSING REQUEST MC ONE (15:37)
[2019-10-11] MEDS ORDERED: Magnesium 1 Gm / 100 Ml D5W*** 100 ML IV SCH ×2 (16:00→16:45)
[2019-10-11] MEDS ORDERED: Klor Con 10 MEQ PO ONE (17:00)
[2019-10-11] MEDS ORDERED: VANCOMYCIN 2 GRAM/400 ML BAG 2 GM/400 ML PIGGYBACK IV ONE (17:00)
[2019-10-11] MEDS ORDERED: POTASSIUM CHLORIDE 20 mEq IN WATER 100ML 20 MEQ/100 ML BAG IV ONE (17:00)
[2019-10-11] MEDS ORDERED: POTASSIUM CHLORIDE 20 MEQ IV SCH ×3 (18:00)
[2019-10-11] MEDS ORDERED: [UNRECOGNIZED DRUG - OTHER] IV SCH ×3 (18:00)
[2019-10-11] MEDS ORDERED: MAGNESIUM SULFATE IV SCH ×3 (18:00)
[2019-10-11] MEDS ORDERED: VANCOMYCIN 2 GRAM/400 ML BAG 2 GM/400 ML PIGGYBACK IV SCH (22:00)
[2019-10-11 22:48] LABS: Potassium 3.9 mmol/L (3.5-5.1)
[2019-10-12] MEDS: PERCOCET TABLET 5/325MG PO PRN (05:24)
[2019-10-12] MEDS: CLINDAMYCIN-D5W 600 MG/50 ML*** 600 MG/50 ML BAG IV SCH (06:39)
[2019-10-12] MEDS: MOTRIN 400 MG PO SCH (06:39)
[2019-10-12 08:17] VITALS: BP 145/79; PULSE 76; O2SAT 99
== END 2019-10-12 08:45 | disposition home or self-care (01) | DRG 607 ==
LOC: ED 20:49 → MED SURG 23:33 → OBSVTOIN 10-08 12:00
PROVIDERS: ADMIT Family Medicine; ATTEND Family Medicine
PROC: 0X940ZX Drainage of Right Axilla, Open Approach, Diagnostic (ICD-10-PCS; principal; 2019-10-07)
PROC: 05H633Z Insertion of Infusion Device into Left Subclavian Vein, Percutaneous Approach (ICD-10-PCS; 2019-10-11)
DX: L73.2 Hidradenitis suppurativa (principal); I47.2 Ventricular tachycardia; L03.111 Cellulitis of right axilla; I10 Essential (primary) hypertension; J45.909 Unspecified asthma, uncomplicated; R00.2 Palpitations; E83.42 Hypomagnesemia; E87.6 Hypokalemia; G47.33 Obstructive sleep apnea (adult) (pediatric); E66.01 Morbid (severe) obesity due to excess calories; F19.21 Other psychoactive substance dependence, in remission; I25.2 Old myocardial infarction
CPT/HCPCS: 36000; 36415; 36573; 76937; 77001; 80048; 80053; 80202; 81025; 82962; 83036; 83605; 83690; 83735; 84132; 84484; 85025; 85027; 85610; 85730; 87040; 87070; 88305; 93005; 93268; 94760; 94762; 94770; 96365; 96367; 96374; 99285; C1769; G0378; J1100; J1170; J1642; J1885; J2405; J2550; J2704; J3010; J3370; J3475; J3480; Q3014; A9270-GY

== ENCOUNTER 2019-10-27 19:11 | Emergency (ER) | payer SELFPAY ==
[2019-10-27 19:47] VITALS: O2SAT 96
[2019-10-27] MEDS ORDERED: TORAdol 30 mg Injection IM ONE (20:03)
[2019-10-27] MEDS ORDERED: TORAdol 30 mg Injection ONE (20:04)
--- NOTE | 2019-10-27 20:13 | ERPHSYRPT ---
- History of Present Illness Time Seen by Provider: 10/27/19 19:48 Source: patient Exam Limitations: no limitations (a) Patient Subjective Stated Complaint: pt states that she had PICC line removed last week, pt states that area has increase reddness and pain to the touch, pt states that she has had fever the past couple days, pt states that she was on IV antibiotic for infection of rt arm pit, pt states that infusions stopped last Thursday, pt states that she has not felt well for the past couple of days, pt states that she took tylenol at 1700, pt states that she gets infection easily Triage Nursing Assessment: pt ambulated into the er, axo x3, hypertensive, rt arm is red measuring 3 cm x 6 cm, arm measures 42.5 cm around, wounds present in rt arm pit, 5 cm x1 cm and 3 cm x1 cm, wounds have purulent drainage and foul smell, Physician History: 34 years old morbidly obese female with recent right axilla surgery with postop needing IV antibiotics and PICC line was placed which is removed recently presented with chief complaint of line placement area of redness and swelling with some minimal discharge since yesterday. Patient reports she is also having mild to moderate bowel aching pain in the arm associated with redness and low-grade fever intermittently since morning. She has been taking Tylenol. She denies any swelling of the whole arm. She still have mild discharge from axilla wound. She denies any erythema or redness around the incision areas/wound. Timing/Duration: yesterday Quality: burning, painful Severity: moderate Location: extremities (right arm) Associated Symptoms: denies symptoms ( date although elevated was the) Allergies/Adverse Reactions: codeine Allergy (Verified 10/12/19 17:04) Tightness of Throat cephalexin [From Keflex] Adverse Reaction (Verified 10/12/19 17:04) Hives Home Medications: Fluoxetine HCl [Prozac] 40 mg PO DAILY 10/07/19 [History] Lisinopril/Hydrochlorothiazide [Lisinopril-Hctz 20-12.5 mg Tab] 20 mg PO BID 07/17 [History] Ziprasidone HCl 20 mg PO BID 10/27/19 [History] Hx Tetanus, Diphtheria Vaccination/Date Given: Yes Hx Influenza Vaccination/Date Given: No Hx Pneumococcal Vaccination/Date Given: No - Review of Systems Constitutional: Fever, Chills Eyes: No Symptoms Ears, Nose, & Throat: No Symptoms Respiratory: No Symptoms Cardiac: No Symptoms Abdominal/Gastrointestinal: No Symptoms Genitourinary Symptoms: No Symptoms Musculoskeletal: Myalgias Skin: Cellulitis, Rash, Skin Lesions Neurological: No Symptoms Psychological: No Symptoms Endocrine: No Symptoms Hematologic/Lymphatic: No Symptoms Immunological/Allergic: No Symptoms - Past Medical History Pertinent Past Medical History: Yes Neurological History: No Pertinent History ENT History: No Pertinent History Cardiac History: Hypertension, Myocardial Infarction ([place]) Respiratory History: Asthma Endocrine Medical History: No Pertinent History Musculoskeletal History: No Pertinent History GI Medical History: No Pertinent History History: No Pertinent History Psycho-Social History: Anxiety, Bipolar, Depression, Panic Disorder, Other Female Reproductive Disorders: No Pertinent History, Menstrual Problems Other Medical History: PTSD, schizophrenia - Past Surgical History Past Surgical History: Yes Neuro Surgical History: No Pertinent History Cardiac: No Pertinent History Respiratory: No Pertinent History Gastrointestinal: No Pertinent History Genitourinary: No Pertinent History Musculoskeletal: No Pertinent History Female Surgical History: Other Other Surgical History: metal removed from rt knee and back. surgery to rt hand from cat bite fever. ablation, sweat gland removal to rt arm pit - Social History Smoking Status: Current every day smoker How long have you smoked: age 15 Exposure to second hand smoke: Yes Drug Use: none Patient Lives Alone: No - Female History Hx Now: No - Nursing Vital Signs Nursing Vital Signs: Initial Vital Signs Temperature 98.7 F 10/27/19 19:16 Pulse Rate 114 H 10/27/19 19:16 Respiratory Rate 25 H 10/27/19 19:16 Blood Pressure 187/116 10/27/19 19:16 O2 Sat by Pulse Oximetry 96 10/27/19 19:16 Pain Scale Pain Intensity 7 - Physical Exam General Appearance: no apparent distress Eye Exam: eyes nml inspection Ears, Nose, Throat Exam: normal ENT inspection Neck Exam: normal inspection Respiratory Exam: normal breath sounds, lungs clear Cardiovascular Exam: normal heart sounds, tachycardia Back Exam: normal inspection Extremity Exam: normal inspection Neurologic Exam: alert, oriented x 3, cooperative Skin Exam: dry, rash, other (minimal sloughing insertion area with erythema around. No induration. Mildly increased temperature as compared to surrounding. Minimal tenderness. Axilla wound with good granulation tissue and no erythema/induration at the edges.) SpO2 Interpretation: normal SpO2: 96 O2 Delivery: Room Air - Course Nursing assessment & vital signs reviewed: Yes Ordered Tests: Active Orders 24 hr Category Date Time Status CBC W DIFF Stat Lab 10/27/19 20:45 Completed CMP Stat Lab 10/27/19 20:45 Completed Medication Summary Generic Name Dose Route Start Last Admin Trade Name Brandy PRN Reason Stop Dose Admin Clindamycin HCl 300 mg 10/27/19 21:58 Cleocin 150 Mg Capsule PO 10/27/19 21:59 STAT ONE Discontinued Medications Generic Name Dose Route Start Last Admin Trade Name Osmanyq PRN Reason Stop Dose Admin Ketorolac Tromethamine 30 mg 10/27/19 20:03 10/27/19 20:07 Toradol 30 Mg Injection IM 10/27/19 20:04 30 mg STAT ONE Administration Ketorolac Tromethamine Confirm 10/27/19 20:04 Toradol 30 Mg Injection Administered 10/27/19 20:05 Dose 30 mg .ROUTE .[employer] ONE Lab/Rad Data: Laboratory Result Diagrams 10/27/19 20:45 10/27/19 20:45 Laboratory Results 10/27/19 10/27/19 Range/Units 20:45 20:45 WBC 9.1 (4.0-10.5) K/mm3 RBC 3.54 L (4.1-5.4) M/mm3 Hgb 11.7 L (12.0-16.0) gm/dl Hct 36.3 (35-47) % MCV 102.5 H (78-100) fl MCH 33.1 H (26-32) pg MCHC 32.2 (32-36) g/dl RDW 14.0 (11.5-14.0) % Plt Count 270 (150-450) K/mm3 MPV 10.6 (7.5-11.0) fl Gran % 63.3 (36.0-66.0) % Eos # (Auto) 0.28 (0-0.5) Absolute Lymphs (auto) 2.29 (1.0-4.6) Absolute Monos (auto) 0.69 (0.0-1.3) Lymphocytes % 25.1 (24.0-44.0) % Monocytes % 7.6 (0.0-12.0) % Eosinophils % 3.1 (0.00-5.0) % Basophils % 0.9 (0.0-0.4) % Absolute Granulocytes 5.79 (1.4-6.9) Basophils # 0.08 (0-0.4) Sodium 138 (137-145) mmol/L Potassium 3.7 (3.5-5.1) mmol/L Chloride 98 (98-107) mmol/L Carbon Dioxide 27 (22-30) mmol/L Anion Gap 16.8 H (5-15) MEQ/L BUN 16 (7-17) mg/dL Creatinine 0.69 (0.52-1.04) mg/dL Estimated GFR > 60.0 ML/MIN Glucose 159 H (74-106) mg/dL Calcium 9.7 (8.4-10.2) mg/dL Total Bilirubin 0.30 (0.2-1.3) mg/dL AST 22 (14-36) U/L ALT 22 (0-35) U/L Alkaline Phosphatase 71 (38-126) U/L Serum Total Protein 8.6 H (6.3-8.2) g/dL Albumin 4.7 (3.5-5.0) g/dL - Progress Progress: unchanged, re-examined Progress Note: She is given Toradol for symptomatic relief, reevaluation feeling better. She is a normal white count. Grossly unremarkable chemistries. She has some erythema and I will treat her with oral antibiotics. I have offered her clindamycin shot here but patient wants to take oral capsule which is reasonable. We'll continue with clindamycin to go home and outpatient followup recommended. At this point suspicion for DVT is low as it seems more around the insertion site with area of erythema.. I have advised her to followup outpatient with primary care for reevaluation and if has swelling pain/redness worsening may need ultrasound and or iv antibiotics. Patient agrees with the plan and understands very well the importance of followup. 10/27/19 21:59 Counseled pt/family regarding: lab results, diagnosis, need for follow-up - Departure Departure Disposition: Home Clinical Impression: Right arm cellulitis Condition: Stable Critical Care Time: No Referrals: MOE SANCHEZ [Primary Care Provider] - Follow Up with PCP/3 days Instructions: Cellulitis (Skin Infection), Adult (DC) Additional Instructions: use Tylenol/ibuprofen as needed for pain. Followup with primary care physician for reevaluation. Return to the ER for increasing pain/swelling/ redness/fever or chills. Continue with antibiotics.
[2019-10-27 20:59] LABS: Absolute Neutrophil Ct (ANC) 5.79 (1.4-6.9); BASOPHIL % 0.9 % (0.0-0.4); Basophil (Absolute #) 0.08 (0-0.4); Eosinophil % 3.1 % (0.00-5.0); Eosinophil (Absolute #) 0.28 (0-0.5); Hematocrit 36.3 % (35-47); Hemoglobin 11.7 gm/dl (12.0-16.0); Lymphocyte (Absolute #) 2.29 (1.0-4.6); Lymphocytes % 25.1 % (24.0-44.0); Mean Cell Volume 102.5 fl (78-100); Mean Corpuscular Hemoglobin 33.1 pg (26-32); Mean Corpuscular Hgb Concent. 32.2 g/dl (32-36); Mean Platelet Volume 10.6 fl (7.5-11.0); Monocyte (Absolute #) 0.69 (0.0-1.3); Monocytes % 7.6 % (0.0-12.0); Neutrophil % 63.3 % (36.0-66.0); Platelet Count 270 K/mm3 (150-450); Red Blood Count 3.54 M/mm3 (4.1-5.4); White Blood Count 9.1 K/mm3 (4.0-10.5)
[2019-10-27 21:06] VITALS: PULSE 103
[2019-10-27 21:11] LABS: ALBUMIN 4.7 g/dL (3.5-5.0); ALKALINE PHOSPHATASE 71 U/L (38-126); ANION GAP 16.8 MEQ/L (5-15); BLOOD UREA NITROGEN 16 mg/dL (7-17); CHLORIDE 98 mmol/L (98-107); Calcium 9.7 mg/dL (8.4-10.2); Carbon Dioxide 27 mmol/L (22-30); Creatinine 1 0.69 mg/dL (0.52-1.04); Glucose 159 mg/dL (74-106); Potassium 3.7 mmol/L (3.5-5.1); SGOT/AST 22 U/L (14-36); SGPT/ALT 22 U/L (0-35); SODIUM 138 mmol/L (137-145); Total Protein 8.6 g/dL (6.3-8.2)
[2019-10-27] MEDS ORDERED: CLEOCIN 150 MG CAPSULE PO ONE (21:58)
[2019-10-27] MEDS ORDERED: CLEOCIN 150 MG CAPSULE ONE (22:05)
[2019-10-27 22:09] VITALS: BP 189/106
== END 2019-10-27 22:16 | disposition home or self-care (01) ==
LOC: ED 19:11
DX: L03.113 Cellulitis of right upper limb (principal)
CPT/HCPCS: 36415; 80053; 85025; 96372; 99284; J1885; A9270-GY

== ENCOUNTER 2019-11-26 17:29 | Emergency (ER) | payer OTHER ==
[2019-11-26 18:00] VITALS: O2SAT 98
[2019-11-26] MEDS ORDERED: DUONEB 0.5-3 MG/3 ml Neb IH ONE ×2 (18:12→18:18)
[2019-11-26] MEDS ORDERED: solu-MEDROL 125 MG IM ONE (18:12)
[2019-11-26] MEDS ORDERED: solu-MEDROL 125 MG ONE (18:17)
--- NOTE | 2019-11-26 18:18 | ERPHSYRPT ---
- History of Present Illness Time Seen by Provider: 11/26/19 18:00 Source: patient Exam Limitations: no limitations Patient Subjective Stated Complaint: Cough Triage Nursing Assessment: Patient ambulated into ED and transferred self to bed. Patient A+O X3. Patient's skin pink, warm and dry. Patient complains of cough for one week. Patient states she hasn't had insurance to go to doctor. Patient states she had has fever on and off as high as 101.4. Lungs diminished throughout. Patient has non-productive cough. Patient complains of sore throat constant, sharp pain 4/10. Physician History: 34 years old morbidly obese female presented in the ER with 1 week history of worsening dry cough with sore throat and low-grade fever with a T-max of 101 2 days ago. She has history of asthma and has not been using inhaler. Denies any chest pain but has generalized soreness. Timing/Duration: week(s) (1) Cough Quality/Degree: moderate, dry cough Possible Cause: occasional episodes Modifying Factors: Improves With: coughing, exertion Associated Symptoms: fever, chills, chest pain/soreness, cough, muscle aches, sore throat Allergies/Adverse Reactions: codeine Allergy (Verified 10/12/19 17:04) Tightness of Throat erythromycin base Allergy (Verified 11/26/19 17:51) cephalexin [From Keflex] Adverse Reaction (Verified 10/12/19 17:04) Hives Home Medications: Fluoxetine HCl [Prozac] 40 mg PO DAILY 10/07/19 [History] Lisinopril/Hydrochlorothiazide [Lisinopril-Hctz 20-12.5 mg Tab] 20 mg PO BID 07/17 [History] Ziprasidone HCl 20 mg PO BID 10/27/19 [History] Hx Tetanus, Diphtheria Vaccination/Date Given: Yes Hx Influenza Vaccination/Date Given: No Hx Pneumococcal Vaccination/Date Given: No Immunizations Up to Date: Yes - Review of Systems Constitutional: Fever, Chills, Fatigue Eyes: No Symptoms Ears, Nose, & Throat: Nose Congestion, Throat Pain Respiratory: Cough, Wheezing Cardiac: No Symptoms Abdominal/Gastrointestinal: No Symptoms Genitourinary Symptoms: No Symptoms Musculoskeletal: Myalgias Skin: No Symptoms Neurological: No Symptoms Psychological: No Symptoms Endocrine: No Symptoms Hematologic/Lymphatic: No Symptoms - Past Medical History Pertinent Past Medical History: Yes Neurological History: No Pertinent History ENT History: No Pertinent History Cardiac History: Hypertension, Myocardial Infarction ([place]) Respiratory History: Asthma Endocrine Medical History: No Pertinent History Musculoskeletal History: No Pertinent History GI Medical History: No Pertinent History History: No Pertinent History Psycho-Social History: Anxiety, Bipolar, Depression, Panic Disorder, Other Female Reproductive Disorders: No Pertinent History, Menstrual Problems Other Medical History: PTSD, schizophrenia - Past Surgical History Past Surgical History: Yes Neuro Surgical History: No Pertinent History Cardiac: No Pertinent History Respiratory: No Pertinent History Gastrointestinal: No Pertinent History Genitourinary: No Pertinent History Musculoskeletal: No Pertinent History Female Surgical History: Other Other Surgical History: metal removed from rt knee and back. surgery to rt hand from cat bite fever. ablation, sweat gland removal to rt arm pit - Social History Smoking Status: Current every day smoker How long have you smoked: age 15 Exposure to second hand smoke: Yes Drug Use: none Patient Lives Alone: No - Female History Hx Last Menstrual Period: ablation Hx Now: No - Nursing Vital Signs Nursing Vital Signs: Initial Vital Signs Temperature 98.7 F 11/26/19 17:52 Pulse Rate 108 H 11/26/19 17:52 Respiratory Rate 20 11/26/19 17:52 Blood Pressure 169/101 11/26/19 17:52 O2 Sat by Pulse Oximetry 97 11/26/19 17:52 Pain Scale Pain Intensity 4 - Physical Exam General Appearance: no apparent distress Eye Exam: PERRL/EOMI, eyes nml inspection Ears, Nose, Throat Exam: pharyngeal erythema Neck Exam: normal inspection, non-tender, supple, full range of motion Respiratory Exam: normal breath sounds, lungs clear Cardiovascular Exam: regular rate/rhythm, normal heart sounds Gastrointestinal/Abdomen Exam: soft, normal bowel sounds Back Exam: normal inspection Extremity Exam: normal inspection Neurologic Exam: alert, oriented x 3, cooperative Skin Exam: normal color SpO2 Interpretation: normal SpO2: 98 O2 Delivery: Room Air - Course Nursing assessment & vital signs reviewed: Yes Ordered Tests: Active Orders 24 hr Category Date Time Status CHEST 2 VIEWS (PA AND LAT) Stat Exams 11/26/19 18:51 Taken Respiratory Therapy Assessment DAILY RT 11/26/19 18:24 Completed Medication Summary Discontinued Medications Generic Name Dose Route Start Last Admin Trade Name Freq PRN Reason Stop Dose Admin Albuterol/Ipratropium 3 ml 11/26/19 18:12 11/26/19 18:23 Duoneb 0.5-3 Mg/3 Ml Neb IH 11/26/19 18:13 3 ml STAT ONE Administration Albuterol/Ipratropium Confirm 11/26/19 18:18 Duoneb 0.5-3 Mg/3 Ml Neb Administered 11/26/19 18:19 Dose 3 ml IH .STK-MED ONE Methylprednisolone Sodium Succinate 125 mg 11/26/19 18:12 11/26/19 18:20 Solu-Medrol 125 Mg IM 11/26/19 18:13 125 mg STAT ONE Administration Methylprednisolone Sodium Succinate Confirm 11/26/19 18:17 Solu-Medrol 125 Mg Administered 11/26/19 18:18 Dose 125 mg .ROUTE .STK-MED ONE - Progress Progress: improved, re-examined Air Movement: good Progress Note: She is given breathing treatment and steroid in the ER, on reevaluation feeling better. X-rays ruled out pneumonic infiltrates. I believe patient has asthma exacerbation with bronchitis, will start her on Z-Melvin along with steroids and has an inhaler at home which she is advised to continue. Recommended outpatient follow-up 11/26/19 19:10 Blood Culture(s) Obtained: No Antibiotics given: Yes Counseled pt/family regarding: diagnosis, need for follow-up, rad results - Departure Departure Disposition: Home Clinical Impression: Asthmatic bronchitis with exacerbation Qualifiers: Asthma severity: moderate Asthma persistence: persistent Qualified Code(s): J45.41 - Moderate persistent asthma with (acute) exacerbation Condition: Stable Critical Care Time: No Referrals: MOE SANCHEZ [Primary Care Provider] - Follow Up with PCP/3 days Instructions: Cough, Adult (DC) Additional Instructions: Use inhaler which you have at home. No smoking. Follow-up with primary care for reevaluation. Return to ER for any worsening. Prescriptions: Azithromycin 250 mg [Zithromax 250 MG TABLET] 250 mg PO ZPACK #6 tablet predniSONE [Prednisone] 50 mg PO DAILY #5 tablet
[2019-11-26 18:51] VITALS: BP 144/105; PULSE 107
--- NOTE | 2019-11-26 20:13 | XRAY ---
Indication: Fever and cough 1 week. Comparison: October 13, 2019. PA/lateral chest now demonstrates normal heart, lungs, bony thorax. Right PICC line has been removed in the interim.
== END 2019-11-26 19:52 | disposition home or self-care (01) ==
LOC: ED 17:29
DX: J45.41 Moderate persistent asthma with (acute) exacerbation (principal); I10 Essential (primary) hypertension; I25.2 Old myocardial infarction; F41.9 Anxiety disorder, unspecified; F31.9 Bipolar disorder, unspecified; F43.10 Post-traumatic stress disorder, unspecified; F20.9 Schizophrenia, unspecified
CPT/HCPCS: 71046; 94640; 96372; 99284; J2930; A9270-GY